=== PATIENT | female | born 1980 | race Two or more races ===

== ENCOUNTER 2016-09-04 14:26 | Emergency (ER) | payer BC, OTHER ==
[~2016-09-04] VITALS: Ht 165.1 cm; Wt 81.6 kg
[~2016-09-04 14:26] MED LIST: ATOR40TA PO; METF10002 PO
[2016-09-04 14:52] VITALS: BP 138/71
[2016-09-04] MEDS ORDERED: IBUPROFEN 600 MG TABLET PO ONE ×2 (15:30→15:51)
== END 2016-09-04 17:40 | disposition home or self-care (01) ==
LOC: ER 15:15
DX: S62.202A Unspecified fracture of first metacarpal bone, left hand, initial encounter for closed fracture (principal); E11.9 Type 2 diabetes mellitus without complications; Z90.89 Acquired absence of other organs; W18.30XA Fall on same level, unspecified, initial encounter; Y93.89 Activity, other specified; Y92.89 Other specified places as the place of occurrence of the external cause; Y99.9 Unspecified external cause status
CPT/HCPCS: 29125; 73140; 99284; A4606; Z7610